=== PATIENT | female | born 1985 | race African-American/Black ===

== ENCOUNTER 2024-02-18 05:55 | Emergency (ER) | payer MEDICAID ==
[2024-02-18 06:35] LABS: BASOPHILS % 0.4 % (0.0-2.0); EOSINOPHILS % 0.4 % (0.0-5.0); HEMATOCRIT. 32.1 % (36.0-48.0); HEMOGLOBIN. 10.3 g/dL (12.0-16.0); LYMPHOCYTES % 30.1 % (20.0-50.0); MEAN CORPUSCULAR HEMOGLOBIN 29.1 pg (28.0-32.0); MEAN CORPUSCULAR HGB CONC 32.2 g/dL (31.0-37.0); MEAN CORPUSCULAR VOLUME 90.4 fL (81.0-99.0); MEAN PLATELET VOLUME 7.8 fl (7.4-10.4); MONOCYTES % 7.8 % (2.0-8.0); NEUTROPHILS % 61.3 % (40.0-76.0); PLATELET 253 x1000/uL (130-400); RED BLOOD CELL COUNT 3.56 mill/uL (4.2-5.4); RED CELL DISTRIBUTION WIDTH 14.1 % (11.6-14.6); WHITE BLOOD COUNT 7.4 x1000/uL (4.5-11.0)
[2024-02-18 06:36] LABS: CHLORIDE 107 mEq/L (98-107); POTASSIUM 3.8 mEq/L (3.5-5.1); SODIUM 137 mEq/L (136-145)
[2024-02-18 06:37] LABS: CARBON DIOXIDE 21 mEq/L (21-32)
[2024-02-18 06:38] LABS: CALCIUM 9.9 mg/dL (8.7-10.4)
[2024-02-18 06:42] LABS: CREATININE 0.6 mg/dL (0.6-1.0); GLUCOSE 117 mg/dL (70-105)
[2024-02-18 07:00] VITALS: BP 145/85; PULSE 81; RESP 14; TEMP 36.72516; O2SAT 98
[2024-02-18] MEDS: MAGNESIUM/ALUMINUM HYDROXIDE/SIMETHICONE 30ML UDC PO STA (07:11)
[2024-02-18] MEDS: ONDANSETRON 4MG ODT PO STA (07:11)
[2024-02-18 07:23] LABS: UREA NITROGEN BLOOD < 5 mg/dL (9-23)
[2024-02-18 07:24] LABS: B-HCG QUANTITATIVE 21917 mIU/mL (<3)
== END 2024-02-18 07:26 | disposition home or self-care (01) ==
LOC: ER 06:12
DX: O26.893 Other specified pregnancy related conditions, third trimester (principal); Z3A.34 34 weeks gestation of pregnancy
CPT/HCPCS: 80048; 84702; 85025; 86850; 86900; 86901; 36415; 76805; 99284; Q0162; Z7610 ×2; C1893